=== PATIENT | male | born 1965 | race Caucasian/White ===

== ENCOUNTER 2019-03-23 11:26 | Observation (INO) | payer OTHER ==
[2019-03-23] MEDS ORDERED: NITROGLYCERIN OINT 1 INCH/GM PACKET TOPICAL STA (11:40)
[2019-03-23] MEDS ORDERED: ASPIRIN 81 MG PO STA (11:40)
--- NOTE | 2019-03-23 11:45 | ED ---
General Adult HPI - General Chief complaint: Chest Pain Stated complaint: chest pain Time Seen by Provider: 03/23/19 11:30 Source: patient, EMS, RN notes reviewed Mode of arrival: EMS Limitations: no limitations - History of Present Illness Initial comments: This is a 53-year-old male who presents emergency Department complaining of chest pain. Patient states he has a history of one stent and has diabetes. Patient states he had a stent about 5 years ago. Patient states started having chest pain yesterday at work and also made him very short of breath. Patient denies any radiation of the pain. Patient states it lasts about 2 hours and went away when he finally down to go to bed per patient states she woke up this mind chest pain-free shortly thereafter started having chest pain again short of breath and so he called EMS. Patient states they gave him a couple it took us as it took the pain away but then it came back and they gave him some fentanyl which improved the pain. Patient states currently is chest pain-free. Patient denies any recent fever chills or cough per patient denies any lightheadedness dizziness or near syncopal episode. Patient denies any palpitations. Patient denies abdominal pain patient denies nausea vomiting diarrhea. - Related Data Home Medications Medication Instructions Recorded Confirmed Aspirin 81 mg PO DAILY 11/30/14 03/23/19 INSULIN ASPART (NovoLOG) [NovoLOG See Protocol SQ DAILY PRN 03/23/19 03/23/19 (formulary)] Insulin Degludec [Tresiba 45 - 55 units SQ HS 03/23/19 03/23/19 Flextouch U-200] Previous Rx's Medication Instructions Recorded Atorvastatin [Lipitor] 80 mg PO HS #30 tab 08/05/14 Allergies Allergy/AdvReac Type Severity Reaction Status Date / Time No Known Allergies Allergy Verified 03/23/19 11:40 Review of Systems ROS Statement: Those systems with pertinent positive or pertinent negative responses have been documented in the HPI. ROS Other: All systems not noted in ROS Statement are negative. Past Medical History Past Medical History: Coronary Artery Disease (CAD), Chest Pain / Angina, Heart Failure, Diabetes Mellitus, Hyperlipidemia, Hypertension History of Any Multi-Drug Resistant Organisms: None Reported Past Surgical History: Heart Catheterization With Stent, Orthopedic Surgery Additional Past Surgical History / Comment(s): right leg STEEL PLATE AND 7 SCREWS Past Anesthesia/Blood Transfusion Reactions: No Reported Reaction Date of Last Stent Placement:: 07/2014 Past Psychological History: Depression Smoking Status: Never smoker Past Alcohol Use History: None Reported Past Drug Use History: None Reported - Past Family History Father Additional Family Medical History / Comment(s): AT AGE 83- THYROID CANCER Mother Family Medical History: Coronary Artery Disease (CAD) Additional Family Medical History / Comment(s): 5 VESSEL BYPASS General Exam - General Exam Comments Initial Comments: GENERAL: Patient is well-developed and well-nourished. Patient is nontoxic and well- hydrated and is in no acute distress. ENT: Neck is soft and supple. No significant lymphadenopathy is noted. Oropharynx is clear. Moist mucous membranes. Neck has full range of motion without eliciting any pain. EYES: The sclera were anicteric and conjunctiva were pink and moist. Extraocular movements were intact and pupils were equal round and reactive to light. Eyelids were unremarkable. PULMONARY: Unlabored respirations. Good breath sounds bilaterally. No audible rales rhonchi or wheezing was noted. CARDIOVASCULAR: There is a regular rate and rhythm without any murmurs gallops or rubs. ABDOMEN: Soft and nontender with normal bowel sounds. SKIN: Skin is clear with no lesions or rashes and otherwise unremarkable. NEUROLOGIC: Patient is alert and oriented x3. Cranial nerves II through XII are grossly intact. Motor and sensory are also intact. Normal speech, volume and content. Symmetrical smile. MUSCULOSKELETAL: Normal extremities with adequate strength and full range of motion. LYMPHATICS: No significant lymphadenopathy is noted PSYCHIATRIC: Normal psychiatric evaluation. Limitations: no limitations Course Vital Signs 03/23/19 11:30 Temperature 98.4 F Pulse Rate 89 Respiratory 17 Rate Blood Pressure 110/71 O2 Sat by Pulse 95 Oximetry Medical Decision Making - Medical Decision Making EKG shows normal sinus rhythm at 77 bpm LA interval 160 QRS is 84 QT interval 342 QTC is 37. Patient's EKG shows no ST segment elevation or depression no T- wave abnormalities noted. Chest x-ray shows no acute abnormality. I will back into reevaluate the patient patient was no longer having any chest pain. Because of the patient's history and presentation I consider this to be unstable angina started the patient on heparin. I spoke with Dr. Garrett Tucker agreed to admit the patient admitted the patient I wrote admitting orders and consult cardiology. I continued heparin and aspirin and Nitropaste on the floor. - Lab Data Result diagrams: 03/23/19 11:31 03/23/19 11:31 Lab Results 03/23/19 03/23/19 03/23/19 Range/Units 11:31 11:31 11:31 WBC 8.9 (3.8-10.6) k/uL RBC 5.47 (4.30-5.90) m/uL Hgb 15.6 (13.0-17.5) gm/dL Hct 48.7 (39.0-53.0) % MCV 89.1 (80.0-100.0) fL MCH 28.5 (25.0-35.0) pg MCHC 31.9 (31.0-37.0) g/dL RDW 12.9 (11.5-15.5) % Plt Count 236 (150-450) k/uL Neutrophils % 70 % Lymphocytes % 18 % Monocytes % 5 % Eosinophils % 5 % Basophils % 1 % Neutrophils # 6.2 (1.3-7.7) k/uL Lymphocytes # 1.6 (1.0-4.8) k/uL Monocytes # 0.4 (0-1.0) k/uL Eosinophils # 0.4 (0-0.7) k/uL Basophils # 0.1 (0-0.2) k/uL PT 10.0 (9.0-12.0) sec INR 0.9 (<1.2) APTT 23.2 (22.0-30.0) sec Sodium 138 (137-145) mmol/L Potassium 4.6 (3.5-5.1) mmol/L Chloride 106 (98-107) mmol/L Carbon Dioxide 24 (22-30) mmol/L Anion Gap 8 mmol/L BUN 22 H (9-20) mg/dL Creatinine 0.77 (0.66-1.25) mg/dL Est GFR (CKD-EPI)AfAm >90 (>60 ml/min/1.73 sqM) Est GFR (CKD-EPI)NonAf >90 (>60 ml/min/1.73 sqM) Glucose 306 H (74-99) mg/dL Calcium 9.1 (8.4-10.2) mg/dL Magnesium 2.0 (1.6-2.3) mg/dL Total Bilirubin 0.6 (0.2-1.3) mg/dL AST 25 (17-59) U/L ALT 39 (21-72) U/L Alkaline Phosphatase 99 (38-126) U/L Troponin I (0.000-0.034) ng/mL Total Protein 6.8 (6.3-8.2) g/dL Albumin 4.1 (3.5-5.0) g/dL 03/23/19 Range/Units 11:31 WBC (3.8-10.6) k/uL RBC (4.30-5.90) m/uL Hgb (13.0-17.5) gm/dL Hct (39.0-53.0) % MCV (80.0-100.0) fL MCH (25.0-35.0) pg MCHC (31.0-37.0) g/dL RDW (11.5-15.5) % Plt Count (150-450) k/uL Neutrophils % % Lymphocytes % % Monocytes % % Eosinophils % % Basophils % % Neutrophils # (1.3-7.7) k/uL Lymphocytes # (1.0-4.8) k/uL Monocytes # (0-1.0) k/uL Eosinophils # (0-0.7) k/uL Basophils # (0-0.2) k/uL PT (9.0-12.0) sec INR (<1.2) APTT (22.0-30.0) sec Sodium (137-145) mmol/L Potassium (3.5-5.1) mmol/L Chloride (98-107) mmol/L Carbon Dioxide (22-30) mmol/L Anion Gap mmol/L BUN (9-20) mg/dL Creatinine (0.66-1.25) mg/dL Est GFR (CKD-EPI)AfAm (>60 ml/min/1.73 sqM) Est GFR (CKD-EPI)NonAf (>60 ml/min/1.73 sqM) Glucose (74-99) mg/dL Calcium (8.4-10.2) mg/dL Magnesium (1.6-2.3) mg/dL Total Bilirubin (0.2-1.3) mg/dL AST (17-59) U/L ALT (21-72) U/L Alkaline Phosphatase (38-126) U/L Troponin I <0.012 (0.000-0.034) ng/mL Total Protein (6.3-8.2) g/dL Albumin (3.5-5.0) g/dL Critical Care Time Critical Care Time: Yes Total Critical Care Time: 35 Disposition Clinical Impression: Unstable angina pectoris Disposition: ADMITTED IP TO THIS HOSP Referrals: Elías Lutz DO [Primary Care Provider] - 1-2 days Time of Disposition: 13:03
[2019-03-23 12:00] LABS: Basophils # (A) 0.1 k/uL (0-0.2); Basophils % (A) 1 %; Eosinophils # (A) 0.4 k/uL (0-0.7); Eosinophils % (A) 5 %; HCT 48.7 % (39.0-53.0); HGB 15.6 gm/dL (13.0-17.5); Lymphocytes # (A) 1.6 k/uL (1.0-4.8); Lymphocytes % (A) 18 %; MCH 28.5 pg (25.0-35.0); MCHC 31.9 g/dL (31.0-37.0); MCV 89.1 fL (80.0-100.0); Mean Platelet Volume 7.7; Monocytes # (A) 0.4 k/uL (0-1.0); Monocytes % (A) 5 %; Neutrophils # (A) 6.2 k/uL (1.3-7.7); Neutrophils % (A) 70 %; Platelet Count 236 k/uL (150-450); RBC 5.47 m/uL (4.30-5.90); RDW 12.9 % (11.5-15.5); WBC 8.9 k/uL (3.8-10.6)
[2019-03-23 12:09] LABS: ALT 39 U/L (21-72); AST 25 U/L (17-59); African American GFR (CKD) >90 (>60 ml/min/1.73 sqM); Albumin 4.1 g/dL (3.5-5.0); Alkaline Phosphatase 99 U/L (38-126); Anion Gap 8 mmol/L; Blood Urea Nitrogen 22 mg/dL (9-20); Calcium 9.1 mg/dL (8.4-10.2); Carbon Dioxide 24 mmol/L (22-30); Chloride 106 mmol/L (98-107); Glucose 306 mg/dL (74-99); Potassium 4.6 mmol/L (3.5-5.1); Sodium 138 mmol/L (137-145); Total Bilirubin 0.6 mg/dL (0.2-1.3); Total Protein 6.8 g/dL (6.3-8.2)
[2019-03-23 12:10] LABS: INR 0.9 (<1.2); Partial Thromboplastin Time 23.2 sec (22.0-30.0)
--- NOTE | 2019-03-23 12:23 | XR ---
EXAMINATION TYPE: XR chest 2V DATE OF EXAM: 03/23/2019 COMPARISON: Prior chest x-ray 11/30/2014 HISTORY: Chest pain TECHNIQUE: Frontal and lateral views of the chest are obtained. FINDINGS: There is no focal air space opacity, pleural effusion, or pneumothorax seen. The cardiac silhouette size is within normal limits. The osseous structures are intact. There are overlying car diac leads. There is thoracic spondylosis present. IMPRESSION: No acute cardiopulmonary process.
[2019-03-23] MEDS ORDERED: HEPARIN SOD,PORK IN 0.45% NACL 25,000 UNIT in 0.45% NACL 1 250ML.BAG IV SCH (13:00)
[2019-03-23] MEDS ORDERED: HEPARIN SODIUM,PORCINE 5,000 UNIT/ML 1 ML VIAL IV ONE (13:00)
[2019-03-23 14:17] LABS: Glucose,Whole Blood 291 mg/dL (75-99)
[2019-03-23] MEDS: NITROGLYCERIN SL TABS 0.4 MG TAB SUBLINGUAL PRN ×3 (16:01→16:27)
[2019-03-23] MEDS: INSULIN ASPART (NovoLOG) 100 UNIT/ML VIAL SQ SCH ×3 (16:02→20:16)
[2019-03-23 16:59] LABS: Glucose,Whole Blood 226 mg/dL (75-99)
[2019-03-23] MEDS: NITROGLYCERIN OINT 1 INCH/GM PACKET TOPICAL SCH (17:53)
[2019-03-23 20:20] LABS: Glucose,Whole Blood 120 mg/dL (75-99)
[2019-03-23] MEDS ORDERED: ATORVASTATIN 80 MG TAB PO SCH (21:00)
[2019-03-23] MEDS ORDERED: INSULIN DETEMIR (LEVEMIR) 100 UNIT/ML SYR SQ SCH (21:00)
[2019-03-23] MEDS ORDERED: ACETAMINOPHEN TAB 325 MG TAB PO PRN (23:45)
[2019-03-24] MEDS: NITROGLYCERIN OINT 1 INCH/GM PACKET TOPICAL SCH (00:45)
[2019-03-24 00:51] LABS: Cholesterol 158 mg/dL (<200); HDL Cholesterol 27 mg/dL (40-60); LDL Cholesterol,Calculated 103 mg/dL (0-99); Triglycerides 141 mg/dL (<150)
[2019-03-24 06:50] LABS: Glucose,Whole Blood 148 mg/dL (75-99)
[2019-03-24 08:24] VITALS: RESP 18
[2019-03-24] MEDS: INSULIN ASPART (NovoLOG) 100 UNIT/ML VIAL SQ SCH ×2 (08:55→12:47)
[2019-03-24] MEDS ORDERED: ASPIRIN 325 MG TAB PO SCH (09:00)
[2019-03-24] MEDS ORDERED: ASPIRIN 81 MG PO SCH (09:00)
--- NOTE | 2019-03-24 09:57 | P.CRDCN ---
History of Present Illness History of present illness: This is a pleasant 53-year-old male past medical history significant for coronary artery disease status post stent placement to the OM in 2013, dyslipidemia and diabetes mellitus. He follows with Dr. Lantigua for cardiology, however his stent was placed here. We have been asked to see him in consultation secondary to chest discomfort. Friday night while walking through work he felt a sharp pain that only lasted a brief few seconds. There was no radiation to the arm, back, neck or jaw. The pain was associated with some mild shortness of breath intermittently. Throughout the rest of the night he had multiple more episodes of brief sharp pain causing him to leave work early. He went home and immediately went to sleep. He woke up Friday feeling ok, went to [employer] and again started feeling chest discomfort. However this time it was described as a pressure heaviness in the chest. He was told by his friends at [employer] that he was extremely pale. He denies radiation to the arm, back, neck or jaw. He again was mildly short of breath with no dizziness, palpitations, n ausea, vomiting or diaphoresis. Upon arrival to the emergency department his chest pain had subsided. However he had another bout of chest discomfort last evening of which she was given nitroglycerin and seemed to subside. He is currently chest pain-free. Chest x-ray reveals sinus mechanism with sinus arrhythmia, inferior Q waves noted. Chest x-ray is negative for an acute cardiopulmonary process. Laboratory data reviewed, cardiac enzymes negative 3, LDL of 103 and HDL 27, WBC 8.9, hemoglobin 15.6, pO2 236, sodium 138, potassium 4.6, creatinine 0.77 and magnesium 2.0. Current cardiac medications include aspirin 81 mg daily and atorvastatin 80 mg daily. Cardiac catheterization report reviewed from 2013 revealing LAD free of obstructive disease, mild plaque noted in the circumflex, patent stent of the OM, RCA with plaque throughout its length but no significant focal occlusive disease. At the time of my exam: CONSTITUTIONAL: Denies fever. Denies chills. EYES: Denies blurred vision. Denies vision changes. Denies eye pain. EARS, NOSE, MOUTH & THROAT: Denies headache. Denies sore throat. Denies ear pain. CARDIOVASCULAR: Denies chest pain. Denies shortness of breath. Denies orthopnea. Denies PND. Denies palpitations. RESPIRATORY: Denies cough. GASTROINTESTINAL: Denies abdominal pain. Denies diarrhea. Denies constipation. Denies nausea. Denies vomiting. MUSCULOSKELETAL: Denies myalgias. INTEGUMENTARY: Denies pruitis. Denies rash. NEUROLOGIC: Denies numbness. Denies tingling. Denies weakness. PSYCHIATRIC: Denies anxiety. Denies depression. ENDOCRINE: Denies fatigue. Denies weight change. Denies polydipsia. Denies polyurina. GENITOURINARY: Denies burning, hematuria or urgency with micturation. HEMATOLOGIC: Denies history of anemia. Denies bleeding. Blood pressure 107/66 heart rate 71 afebrile maintaining oxygen saturation on room air GENERAL: This is a 53-year-old male in no apparent distress at the time of my examination. HEENT: Head is atraumatic, normocephalic. Pupils are equal, round. Sclerae anicteric. Conjunctivae are clear. Mucous membranes of the mouth are moist. Neck is supple. There is no jugular venous distention. No carotid bruit is heard. LUNGS: Clear to auscultation no wheezes, rales or rhonchi. No chest wall tenderness is noted on palpation or with deep breathing. HEART: Regular rate and rhythm without murmurs, rubs or gallops. S1 and S2 heard. ABDOMEN: Soft, nontender. Bowel sounds are heard. No organomegaly noted. EXTREMITIES: No evidence of peripheral edema and no calf tenderness noted. VASCULAR: Radial and dorsalis pedis pulses palpated, no evidence of clubbing. NEUROLOGIC: Patient is awake, alert and oriented x3. ASSESSMENT Precordial chest pain. An acute coronary event has been ruled out. History of coronary artery disease s/p stent placement to the in 2013. Dyslipidemia Diabetes mellitus PLAN An acute coronary event has been ruled out. Discontinue heparin infusion. Obtain 2D echocardiogram and doppler study to assess cardiac structure and function. Perform Cardiolyte stress test to assess for reversible cardiac ischemia. Thank you kindly for this consultation. Nurse Practitioner note has been reviewed, I agree with a documented findings and plan of care. Patient was seen and examined. Past Medical History Past Medical History: Coronary Artery Disease (CAD), Chest Pain / Angina, Diabetes Mellitus, Hyperlipidemia Additional Past Medical History / Comment(s): IDDM type II, neuropathy R great toe. History of Any Multi-Drug Resistant Organisms: None Reported Past Surgical History: Heart Catheterization, Heart Catheterization With Stent, Orthopedic Surgery Additional Past Surgical History / Comment(s): right foot steel plate and 7 screws, colonoscopy, vasectomy Past Anesthesia/Blood Transfusion Reactions: No Reported Reaction Date of Last Stent Placement:: 07/2014 Smoking Status: Never smoker - Past Family History Father Additional Family Medical History / Comment(s): AT AGE 63- THYROID CANCER Mother Family Medical History: Coronary Artery Disease (CAD) Additional Family Medical History / Comment(s): 5 VESSEL BYPASS Medications and Allergies Home Medications Medication Instructions Recorded Confirmed Type Atorvastatin [Lipitor] 80 mg PO HS #30 tab 08/05/14 03/23/19 Rx Aspirin 81 mg PO DAILY 11/30/14 03/23/19 History INSULIN ASPART (NovoLOG) [NovoLOG See Protocol SQ DAILY PRN 03/23/19 03/23/19 History (formulary)] Insulin Degludec [Tresiba 45 - 55 units SQ HS 03/23/19 03/23/19 History Flextouch U-200] Allergies Allergy/AdvReac Type Severity Reaction Status Date / Time No Known Allergies Allergy Verified 03/23/19 11:40 Physical Exam Vitals: Vital Signs Temp Pulse Pulse Resp BP BP Pulse Ox 03/24/19 04:56 98.3 F 80 15 95/57 97 03/24/19 03:49 15 03/24/19 00:00 77 15 03/23/19 23:36 98.5 F 86 15 112/69 97 03/23/19 20:00 86 17 03/23/19 19:41 96 03/23/19 16:28 86 16 108/68 98 03/23/19 16:18 81 16 104/63 96 03/23/19 16:00 98.5 F 86 16 107/65 96 03/23/19 13:10 89 16 118/78 98 03/23/19 13:06 83 20 97 03/23/19 11:30 98.4 F 89 17 110/71 95 Intake and Output 03/23/19 03/24/19 03/24/19 22:59 06:59 14:59 Intake Total 117.667 Balance 117.667 Intake: Intake, IV Titration 117.667 Amount Heparin Sod,Pork in 0.45% 117.667 NaCl 25,000 unit In 0.45 % NaCl 1 250ml.bag @ 11. 023 UNITS/KG/HR 10 mls/hr IV .Q24H [facility] Rx#: [id number] Other: Voiding Method Toilet Toilet # Voids 1 1 Results 03/23/19 11:31 03/23/19 11:31 Cardiac Enzymes 03/23/19 03/23/19 03/23/19 Range/Units 11:31 11:31 19:35 AST 25 (17-59) U/L Troponin I <0.012 <0.012 (0.000-0.034) ng/mL 03/23/19 Range/Units 23:35 AST (17-59) U/L Troponin I <0.012 (0.000-0.034) ng/mL Coagulation 03/23/19 03/23/19 03/24/19 Range/Units 11:31 19:35 06:07 PT 10.0 (9.0-12.0) sec APTT 23.2 33.7 H 41.2 H (22.0-30.0) sec Lipids 03/23/19 Range/Units 11:31 Triglycerides 141 (<150) mg/dL Cholesterol 158 (<200) mg/dL HDL Cholesterol 27 L (40-60) mg/dL CBC 03/23/19 Range/Units 11:31 WBC 8.9 (3.8-10.6) k/uL RBC 5.47 (4.30-5.90) m/uL Hgb 15.6 (13.0-17.5) gm/dL Hct 48.7 (39.0-53.0) % Plt Count 236 (150-450) k/uL Comprehensive Metabolic Panel 03/23/19 Range/Units 11:31 Sodium 138 (137-145) mmol/L Potassium 4.6 (3.5-5.1) mmol/L Chloride 106 (98-107) mmol/L Carbon Dioxide 24 (22-30) mmol/L BUN 22 H (9-20) mg/dL Creatinine 0.77 (0.66-1.25) mg/dL Glucose 306 H (74-99) mg/dL Calcium 9.1 (8.4-10.2) mg/dL AST 25 (17-59) U/L ALT 39 (21-72) U/L Alkaline Phosphatase 99 (38-126) U/L Total Protein 6.8 (6.3-8.2) g/dL Albumin 4.1 (3.5-5.0) g/dL Current Medications Generic Name Dose Route Start Last Admin Trade Name Freq PRN Reason Stop Dose Admin Acetaminophen 650 mg 03/23/19 23:45 03/23/19 23:49 Tylenol Tab PO 650 mg Q6HR PRN Administration Fever and/ or Pain Aspirin 81 mg 03/24/19 09:00 Aspirin PO DAILY [facility] Atorvastatin Calcium 80 mg 03/23/19 21:00 03/23/19 20:14 Lipitor PO 80 mg HS [facility] Administration Heparin Sodium/Sodium Chloride 250 mls @ 10 mls/hr 03/23/19 13:00 03/24/19 01:01 25,000 unit/ Sodium Chloride IV 14.023 units/kg/hr .Q24H BETTY 12.721 mls/hr Titration Protocol 11.023 UNITS/KG/HR Insulin Aspart 0 unit 03/23/19 17:30 03/23/19 20:16 Novolog SQ Not Given [facility] Protocol Insulin Detemir 50 unit 03/23/19 21:00 03/23/19 20:17 Levemir SQ 25 unit HS [facility] Administration Nitroglycerin 1 inch 03/23/19 18:00 03/24/19 00:45 Nitro-Bid Oint TOPICAL Not Given Q6HR [facility] Nitroglycerin 0.4 mg 03/23/19 13:04 03/23/19 16:27 Nitrostat SUBLINGUAL 0.4 mg Q5M PRN Administration Chest Pain Intake and Output 03/23/19 03/24/19 03/24/19 22:59 06:59 14:59 Intake Total 117.667 Balance 117.667 Intake: Intake, IV Titration 117.667 Amount Heparin Sod,Pork in 0.45% 117.667 NaCl 25,000 unit In 0.45 % NaCl 1 250ml.bag @ 11. 023 UNITS/KG/HR 10 mls/hr IV .Q24H [facility] Rx#: [id number] Other: Voiding Method Toilet Toilet # Voids 1 1 03/23/19 11:31 03/23/19 11:31
[2019-03-24] MEDS ORDERED: AMINOPHYLLINE 500 MG/20 ML VIAL IV PRN (10:14)
[2019-03-24] MEDS ORDERED: SODIUM CHLORIDE 0.9% IV ONE (10:14)
[2019-03-24] MEDS ORDERED: DIPYRIDAMOLE IV ONE (10:14)
[2019-03-24] MEDS ORDERED: CAFFEINE CITRATE 60 MG/3 ML VIAL IV PRN (10:14)
--- NOTE | 2019-03-24 10:42 | P.HPIM ---
History of Present Illness H&P Date: 03/23/19 Patient is a pleasant 53-year-old male came in the with complaints of chest pain which is brief last for a few seconds in the precordial area nonradiating and not associated sharp with lightheadedness or diaphoresis. Pain is sharp in nature. Not associated with food. Patient still has his gallbladder. Patient does have history of coronary disease with stents to obtuse marginal in 2013 does have diabetes mellitus and hyperlipidemia patient has multiple such episodes. Denied nausea vomiting cough. Chest x-ray did not show any significant abnormality EKG no acute ST-T wave changes troponins is negative. Review of Systems REVIEW OF SYSTEMS: CONSTITUTIONAL: No fever, no malaise, no fatigue. HEENT: No recent visual problems or hearing problems. Denied any sore throat. CARDIOVASCULAR: No orthopnea, PND, no palpitations, no syncope. PULMONARY: No shortness of breath, no cough, no hemoptysis. GASTROINTESTINAL: No diarrhea, no nausea, no vomiting, no abdominal pain. NEUROLOGICAL: No headaches, no weakness, no numbness. HEMATOLOGICAL: Denies any bleeding or petechiae. GENITOURINARY: Denies any burning micturition, frequency, or urgency. MUSCULOSKELETAL/RHEUMATOLOGICAL: Denies any joint pain, swelling, or any muscle pain. ENDOCRINE: Denies any polyuria or polydipsia. The rest of the 14-point review of systems is negative. Past Medical History Past Medical History: Coronary Artery Disease (CAD), Chest Pain / Angina, Diabetes Mellitus, Hyperlipidemia Additional Past Medical History / Comment(s): IDDM type II, neuropathy R great toe. History of Any Multi-Drug Resistant Organisms: None Reported Past Surgical History: Heart Catheterization, Heart Catheterization With Stent, Orthopedic Surgery Additional Past Surgical History / Comment(s): right foot steel plate and 7 screws, colonoscopy, vasectomy Past Anesthesia/Blood Transfusion Reactions: No Reported Reaction Date of Last Stent Placement:: 07/2014 Smoking Status: Never smoker - Past Family History Father Additional Family Medical History / Comment(s): AT AGE 63- THYROID CANCER Mother Family Medical History: Coronary Artery Disease (CAD) Additional Family Medical History / Comment(s): 5 VESSEL [employer] Medications and Allergies Home Medications Medication Instructions Recorded Confirmed Type Atorvastatin [Lipitor] 80 mg PO HS #30 tab 08/05/14 03/23/19 Rx Aspirin 81 mg PO DAILY 11/30/14 03/23/19 History INSULIN ASPART (NovoLOG) [NovoLOG See Protocol SQ DAILY PRN 03/23/19 03/23/19 History (formulary)] Insulin Degludec [Tresiba 45 - 55 units SQ HS 03/23/19 03/23/19 History Flextouch U-200] Allergies Allergy/AdvReac Type Severity Reaction Status Date / Time No Known Allergies Allergy Verified 03/23/19 11:40 Physical Exam Vitals: Vital Signs Temp Pulse Pulse Resp BP BP Pulse Ox 03/24/19 07:45 97.8 F 71 18 107/66 96 03/24/19 04:56 98.3 F 80 15 95/57 97 03/24/19 03:49 15 03/24/19 00:00 77 15 03/23/19 23:36 98.5 F 86 15 112/69 97 03/23/19 20:00 86 17 03/23/19 19:41 96 03/23/19 16:28 86 16 108/68 98 03/23/19 16:18 81 16 104/63 96 03/23/19 16:00 98.5 F 86 16 107/65 96 03/23/19 13:10 89 16 118/78 98 03/23/19 13:06 83 20 97 03/23/19 11:30 98.4 F 89 17 110/71 95 Intake and Output 03/23/19 03/24/19 03/24/19 22:59 06:59 14:59 Intake Total 117.667 Balance 117.667 Intake: Intake, IV Titration 117.667 Amount Heparin Sod,Pork in 0.45% 117.667 NaCl 25,000 unit In 0.45 % NaCl 1 250ml.bag @ 11. 023 UNITS/KG/HR 10 mls/hr IV .Q24H [facility] Rx#: [id number] Other: Voiding Method Toilet Toilet # Voids 1 1 PHYSICAL EXAMINATION: GENERAL: The patient is alert and oriented x3, not in any acute distress. Well developed, well nourished. HEENT: Pupils are round and equally reacting to light. EOMI. No scleral icterus. No conjunctival pallor. Normocephalic, atraumatic. No pharyngeal erythema. No thyromegaly. CARDIOVASCULAR: S1 and S2 present. No murmurs, rubs, or gallops. PULMONARY: Chest is clear to auscultation, no wheezing or crackles. ABDOMEN: Soft, nontender, nondistended, normoactive bowel sounds. No palpable organomegaly. MUSCULOSKELETAL: No joint swelling or deformity. EXTREMITIES: No cyanosis, clubbing, or pedal edema. NEUROLOGICAL: Gross neurological examination did not reveal any focal deficits. SKIN: No rashes. Results CBC & Chem 7: 03/23/19 11:31 03/23/19 11:31 Labs: Abnormal Lab Results - Last 24 Hours (Table) 03/23/19 03/23/19 03/23/19 Range/Units 11:31 11:31 14:03 APTT (22.0-30.0) sec BUN 22 H (9-20) mg/dL Glucose 306 H (74-99) mg/dL POC Glucose (mg/dL) 291 H (75-99) mg/dL LDL Cholesterol, Calc 103 H (0-99) mg/dL HDL Cholesterol 27 L (40-60) mg/dL 03/23/19 03/23/19 03/23/19 Range/Units 16:57 19:35 20:15 APTT 33.7 H (22.0-30.0) sec BUN (9-20) mg/dL Glucose (74-99) mg/dL POC Glucose (mg/dL) 226 H 120 H (75-99) mg/dL LDL Cholesterol, Calc (0-99) mg/dL HDL Cholesterol (40-60) mg/dL 03/24/19 03/24/19 Range/Units 06:07 06:47 APTT 41.2 H (22.0-30.0) sec BUN (9-20) mg/dL Glucose (74-99) mg/dL POC Glucose (mg/dL) 148 H (75-99) mg/dL LDL Cholesterol, Calc (0-99) mg/dL HDL Cholesterol (40-60) mg/dL Thrombosis Risk Factor Assmnt - Choose All That Apply Any of the Below Risk Factors Present?: Yes Each Factor Represents 1 point: Age 41-60 years, Obesity (BMI >25) Other Risk Factors: No Other congenital or acquired thrombophilia - If yes, enter type in comment: No Thrombosis Risk Factor Assessment Total Risk Factor Score: 2 Thrombosis Risk Factor Assessment Level: Low Risk Assessment and Plan Plan: -Chest pain: Atypical appears to be noncardiac cardiology will evaluate the patient will obtain 2 more sets of troponins and EKGs and patient may end up needing a stresses, considering his history. Etiology of chest pain is not clear at this time we will rule out acute coronary syndromes next and-type 2 diabetes mellitus blood sugars are not well-controlled and elevated here patient will be started on insulin regimen as his home and sliding scale -Hypertension -Hyperlipidemia -Coronary artery disease
[2019-03-24] MEDS ORDERED: AMINOPHYLLINE 250 MG/10 ML VIAL IV ONE (11:34)
--- NOTE | 2019-03-24 12:37 | P.DS ---
Providers Date of admission: 03/23/19 13:04 Attending physician: Charleen Tucker Consults: 03/23/19 13:04 Consult Physician Urgent Consulting Provider: [facility] Consult Reason/Comments: Unstable angina Do you want consulting provider notified?: Yes [facility] Course: 53-year-old pleasant gentleman was admitted for chest pain rule out a concurrent syndromes patient is alert and post stress test if that's negative patient will be discharged today. Patient is still having on and of brief episodes of chest pain etiology is not clear may be musculoskeletal. PHYSICAL EXAMINATION: GENERAL: The patient is alert and oriented x3, not in any acute distress. Well developed, well nourished. HEENT: Pupils are round and equally reacting to light. EOMI. No scleral icterus. No conjunctival pallor. Normocephalic, atraumatic. No pharyngeal erythema. No thyromegaly. CARDIOVASCULAR: S1 and S2 present. No murmurs, rubs, or gallops. PULMONARY: Chest is clear to auscultation, no wheezing or crackles. ABDOMEN: Soft, nontender, nondistended, normoactive bowel sounds. No palpable organomegaly. MUSCULOSKELETAL: No joint swelling or deformity. EXTREMITIES: No cyanosis, clubbing, or pedal edema. NEUROLOGICAL: Gross neurological examination did not reveal any focal deficits. SKIN: No rashes. Please refer to my HPI for further details of hospitalization course and other medical problems that were addressed during this hospitalization Plan - Discharge Summary Discharge Rx Participant: No New Discharge Prescriptions: No Action Atorvastatin [Lipitor] 80 mg PO HS #30 tab Aspirin 81 mg PO DAILY INSULIN ASPART (NovoLOG) [NovoLOG (formulary)] See Protocol SQ DAILY PRN PRN Reason: Blood Sugar - High Insulin Degludec [Tresiba Flextouch U-200] 45 - 55 units SQ HS Discharge Medication List Atorvastatin [Lipitor] 80 mg PO HS #30 tab 08/05/14 [Rx] Aspirin 81 mg PO DAILY 11/30/14 [History] INSULIN ASPART (NovoLOG) [NovoLOG (formulary)] See Protocol SQ DAILY PRN 03/23/19 [History] Insulin Degludec [Tresiba Flextouch U-200] 45 - 55 units SQ HS 03/23/19 [History] Follow up Appointment(s)/Referral(s): Elías Lutz DO [Primary Care Provider] - 3 Days Discharge Disposition: HOME SELF-CARE
[2019-03-24 12:40] VITALS: BP 137/76; PULSE 77; TEMP 98.2
[2019-03-24 12:42] LABS: Glucose,Whole Blood 166 mg/dL (75-99)
--- NOTE | 2019-03-24 14:11 | NM ---
EXAMINATION TYPE: NM stress persantine cardiolit DATE OF EXAM: 03/24/2019 COMPARISON: NONE HISTORY: Chest pain TECHNIQUE: After the intravenous administration of 10.4 mCi Tc 99m Sestamibi - Cardiolite resting SP ECT images acquired 45 minutes post injection. The patient received 52 mg Persantine, 27.1 mCi Tc 99m Sestamibi - Stress images obtained 30 minutes post injection FINDINGS: Review of stress and rest SPECT images demonstrates no distinct perfusion abnormality. Gated analysi s shows normal wall motion with an estimated left ventricular ejection fraction of 63 %. IMPRESSION: No scintigraphic evidence for reversible ischemia.
--- NOTE | 2019-03-25 19:22 | ECHOF ---
Referral Reason:cp MEASUREMENTS -------- HEIGHT: 175.3 cm WEIGHT: 90.7 kg BP: 107/66 RVIDd: 2.9 cm (< 3.3) IVSd: 1.2 cm (0.6 - 1.1) LVIDd: 3.2 cm (3.9 - 5.3) LVPWd: 1.2 cm (0.6 - 1.1) IVSs: 1.5 cm LVIDs: 2.2 cm LVPWs: 1.6 cm LA Diam: 2.9 cm (2.7 - 3.8) LAESV Index (A-L): 20.13 ml/m Ao Diam: 2.9 cm (2.0 - 3.7) AV Cusp: 1.9 cm (1.5 - 2.6) MV EXCURSION: 14.946 mm (> 18.000) MV EF SLOPE: 72 mm/s (70 - 150) EPSS: 0.8 cm MV E Caleb: 0.97 m/s MV DecT: 201 ms MV A Caleb: 1.09 m/s MV E/A Ratio: 0.89 FINDINGS -------- Sinus rhythm. This was a technically adequate study. The left ventricular size is normal. There is borderline concentric left ventricular hypertrophy. Overall left ventricular systolic function is normal with, an EF between 60 - 65 %. The right ventricle is normal in size. Normal LA size by volume 22+/-6 ml/m2. The right atrium is normal in size. Interatrial and interventricular septum intact. The aortic valve is trileaflet and appears structurally normal. The mitral valve is normal. The tricuspid valve appears structurally normal. There is no pulmonic regurgitation present. The aortic root size is normal. Normal inferior vena cava with normal inspiratory collapse consistent with estimated right atrial pre ssure of 5 mmHg. There is no pericardial effusion. CONCLUSIONS -------- 1. Sinus rhythm. 2. This was a technically adequate study. 3. The left ventricular size is normal. 4. There is borderline concentric left ventricular hypertrophy. 5. Overall left ventricular systolic function is normal with, an EF between 60 - 65 %. 6. The right ventricle is normal in size. 7. Normal LA size by volume 22+/-6 ml/m2. 8. The right atrium is normal in size. 9. Interatrial and interventricular septum intact. 10. The aortic valve is trileaflet and appears structurally normal. 11. The mitral valve is normal. 12. The tricuspid valve appears structurally normal. 13. There is no pulmonic regurgitation present. 14. The aortic root size is normal. 15. Normal inferior vena cava with normal inspiratory collapse consistent with estimated right atrial pressure of 5 mmHg. 16. There is no pericardial effusion. LIBERAL ARTS DEAN: Edith Holguin RDCS
--- NOTE | 2019-03-25 22:20 | EST ---
EXERCISE STRESS DATE OF SERVICE: 03/24/2019 AGE: 53 SEX: Male HT: 69" WT: 220 lbs. PROTOCOL: Persantine Cardiolite STAGE: DURATION OF EXERCISE: HEART RATE REST: 76 BLOOD PRESSURE REST: 118/73 MAXIMUM HEART RATE ACHIEVED: 104 MAXIMUM BLOOD PRESSURE: 136/77 85% MPHR: 100% MPHR: METS: INDICATIONS: Chest pain. RESULTS: Stress data: Heart rate 76, pressure is 118/73 mmHg. Baseline EKG showed sinus mechanism. 52 mg of Persantine given per protocol. Max heart rate was 104 beats per minute and maximum pressure was 136/77 mmHg. Clinically the patient did not have any symptoms and the EKG did not show any significant ST or T-wave abnormalities concerning for ischemia. CONCLUSION: 1. Nondiagnostic electrocardiogram stress testing in response to Persantine. 2. Please follow up on the Cardiolite portion on a separate report. MMODL / IJN: [id number] /
== END 2019-03-24 16:18 | disposition home or self-care (01) ==
LOC: EC 11:26 → 1SOBS 13:04
PROVIDERS: ADMIT Internal Medicine; ATTEND Internal Medicine
DX: R07.89 Other chest pain (principal); I11.0 Hypertensive heart disease with heart failure; I50.9 Heart failure, unspecified; E11.65 Type 2 diabetes mellitus with hyperglycemia; E78.5 Hyperlipidemia, unspecified; I25.10 Atherosclerotic heart disease of native coronary artery without angina pectoris; F32.9 Major depressive disorder, single episode, unspecified; E66.9 Obesity, unspecified; Z68.29 Body mass index [BMI] 29.0-29.9, adult; Z79.82 Long term (current) use of aspirin; Z79.4 Long term (current) use of insulin; Z79.899 Other long term (current) drug therapy; Z95.5 Presence of coronary angioplasty implant and graft; Z98.52 Vasectomy status; Z80.8 Family history of malignant neoplasm of other organs or systems; Z82.49 Family history of ischemic heart disease and other diseases of the circulatory system
CPT/HCPCS: 96366 ×2; 96376; 96365; 99291; 36415; 93005; 93017; 93306; 80061; 80053; 83735; 84484; 85025; 85610; 85730 ×2; 71046; 78452; G0378 ×2; A9500; J1644 ×2; J0280

== ENCOUNTER 2024-04-25 03:27 | Observation (INO) | payer OTHER ==
[2024-04-25] MEDS: ASPIRIN 325 MG TAB PO STA (04:06)
--- NOTE | 2024-04-25 04:08 | ED ---
General Adult HPI - General Chief complaint: Chest Pain Stated complaint: Chest Pain Time Seen by Provider: 04/25/24 03:32 Source: patient, RN notes reviewed, old records reviewed Mode of arrival: ambulatory Limitations: no limitations - History of Present Illness Initial comments: 58-year-old male presenting for evaluation of substernal chest pain which began several hours prior to arrival. Pain began at rest. Patient has history of CAD status post stenting. He took nitroglycerin at home with relief of chest pain. Patient is a non-smoker. No associated abdominal pain. No vomiting. No fever. - Related Data Home Medications Medication Instructions Recorded Confirmed Aspirin 81 mg PO DAILY 11/30/14 03/23/19 INSULIN ASPART (NovoLOG) [NovoLOG See Protocol SQ DAILY PRN 03/23/19 03/23/19 (formulary)] Insulin Degludec [Tresiba 45 - 55 units SQ HS 03/23/19 03/23/19 Flextouch U-200] Previous Rx's Medication Instructions Recorded Atorvastatin [Lipitor] 80 mg PO HS #30 tab 08/05/14 Allergies Allergy/AdvReac Type Severity Reaction Status Date / Time Penicillins Allergy Unknown Verified 04/25/24 03:30 Childhood metformin AdvReac Diarrhea Verified 04/25/24 03:30 Review of Systems ROS Statement: Those systems with pertinent positive or pertinent negative responses have been documented in the HPI. ROS Other: All systems not noted in ROS Statement are negative. Past Medical History Past Medical History: Coronary Artery Disease (CAD), Chest Pain / Angina, Diabetes Mellitus, Hyperlipidemia Additional Past Medical History / Comment(s): IDDM type II, neuropathy R great toe. History of Any Multi-Drug Resistant Organisms: None Reported Past Surgical History: Heart Catheterization, Heart Catheterization With Stent, Orthopedic Surgery Additional Past Surgical History / Comment(s): right foot steel plate and 7 screws, colonoscopy, vasectomy Past Anesthesia/Blood Transfusion Reactions: No Reported Reaction Date of Last Stent Placement:: 07/2014 Past Psychological History: Anxiety, Depression Smoking Status: Never smoker Past Alcohol Use History: None Reported Past Drug Use History: None Reported - Past Family History Father Additional Family Medical History / Comment(s): AT AGE 63- THYROID CANCER Mother Family Medical History: Coronary Artery Disease (CAD) Additional Family Medical History / Comment(s): 5 VESSEL BYPASS General Exam Limitations: no limitations General appearance: alert, in no apparent distress Head exam: Present: atraumatic, normocephalic Eye exam: Present: normal appearance ENT exam: Present: normal exam Neck exam: Present: normal inspection. Absent: tenderness, meningismus Respiratory exam: Present: normal lung sounds bilaterally. Absent: respiratory distress, wheezes Cardiovascular Exam: Present: regular rate, normal rhythm GI/Abdominal exam: Present: soft. Absent: distended, tenderness, guarding Extremities exam: Present: normal inspection, normal capillary refill Neurological exam: Present: alert, oriented X3, CN II-XII intact. Absent: motor sensory deficit Psychiatric exam: Present: normal affect, normal mood Skin exam: Present: warm, dry, intact Course Vital Signs 04/25/24 04/25/24 03:28 04:02 Temperature 97.8 F Pulse Rate 99 82 Respiratory 20 20 Rate Blood Pressure 131/71 119/75 O2 Sat by Pulse 97 97 Oximetry Medical Decision Making - Medical Decision Making Was pt. sent in by a medical professional or institution (, PA, RN INFUSION, urgent care, hospital, or [place] health care facility...) When possible be specific @ -No Did you speak to anyone other than the patient for history (EMS, parent, family, police, friend...)? What history was obtained from this source @ -No Did you review nursing and triage notes (agree or disagree)? Why? @ -I reviewed and agree with nursing and triage notes Were old charts reviewed (outside hosp., previous admission, EMS record, old EKG, old radiological studies, urgent care reports/EKG's, [place] health care facility records)? Report findings @ -No old charts were reviewed Differential Chest Pain: Stable Angina, Unstable Angina, STEMI, NSTEMI Aortic Dissection, Pneumothorax, Musculoskeletal, Esophageal Spasm GERD, Cholecystitis, Pancreatitis, Zoster, this is not meant to be an all-inclusive list. EKG interpreted by me (3pts min.). @Sinus rhythm rate of 78, MN interval 167, QRS duration 97, QTc [address] segment elevation. X-rays interpreted by me (1pt min.). @'s x-ray negative for acute cardiopulmonary findings CT interpreted by me (1pt min.). @ -None done U/S interpreted by me (1pt. min.). @ -None done What testing was considered but not performed or refused? (CT, X-rays, U/S, labs)? Why? @ -None What meds were considered but not given or refused? Why? @ -None Did you discuss the management of the patient with other professionals (professionals i.e. , PA, RN INFUSION, lab, RT, psych nurse, social media marketing manager, customer insight analyst, teacher, chief school finance officer, caser in)? Give summary @[facility] Was smoking cessation discussed for >3mins.? @ -No Was critical care preformed (if so, how long)? @Yes, 35 minutes Were there social determinants of health that impacted care today? How? (Homelessness, low income, unemployed, alcoholism, drug addiction, transportation, low edu. Level, literacy, decrease access to med. care, intermediate, rehab)? @ -No Was there de-escalation of care discussed even if they declined (Discuss DNR or withdrawal of care, Hospice)? DNR status @ -No What co-morbidities impacted this encounter? (DM, HTN, Smoking, COPD, CAD, Cancer, CVA, ARF, Chemo, Hep., AIDS, mental health diagnosis, sleep apnea, morbid obesity)? @ -CAD Was patient admitted / discharged? Hospital course, mention meds given and route, prescriptions, significant lab abnormalities, going to OR and other pertinent info. @ -8-year-old male presenting with central chest pain relieved by nitroglycerin, history of CAD. EKG is sinus without ST segment elevation. Chest x-ray clear. He has normal CBC, CMP shows hyperglycemia. Initial troponin is negative. Patient started on nitroglycerin and heparin for unstable angina, will be admitted to internal medicine with cardiology on consultation. Undiagnosed new problem with uncertain prognosis? @ -No Drug Therapy requiring intensive monitoring for toxicity (Heparin, Nitro, Insulin, Cardizem)? @ -No Were any procedures done? @ -No Diagnosis/symptom? @ -Unstable angina Acute, or Chronic, or Acute on Chronic? @ -[Acute Uncomplicated (without systemic symptoms) or Complicated (systemic symptoms)? @ -Default Side effects of treatment? @ -No Exacerbation, Progression, or Severe Exacerbation? @ -No Poses a threat to life or bodily function? How? (Chest pain, USA, RI, pneumonia, PE, COPD, DKA, ARF, appy, cholecystitis, CVA, Diverticulitis, Homicidal, Suicidal, threat to staff... and all critical care pts) @ -[Yes, ACS - Lab Data Result diagrams: 04/25/24 03:56 04/25/24 03:56 Lab Results 04/25/24 04/25/24 04/25/24 Range/Units 03:56 03:56 03:56 WBC 10.4 (3.8-10.6) k/uL RBC 5.51 (4.30-5.90) m/uL Hgb 16.1 (13.0-17.5) gm/dL Hct 52.0 (39.0-53.0) % MCV 94.5 (80.0-100.0) fL MCH 29.3 (25.0-35.0) pg MCHC 30.9 L (31.0-37.0) g/dL RDW 12.8 (11.5-15.5) % Plt Count 215 (150-450) k/uL MPV 9.4 Neutrophils % 62 % Lymphocytes % 25 % Monocytes % 6 % Eosinophils % 5 % Basophils % 1 % Neutrophils # 6.4 (1.3-7.7) k/uL Lymphocytes # 2.6 (1.0-4.8) k/uL Monocytes # 0.6 (0-1.0) k/uL Eosinophils # 0.5 (0-0.7) k/uL Basophils # 0.1 (0-0.2) k/uL Sodium 136 L (137-145) mmol/L Potassium 4.9 (3.5-5.1) mmol/L Chloride 104 (98-107) mmol/L Carbon Dioxide 25 (22-30) mmol/L Anion Gap 7 mmol/L BUN 23 H (9-20) mg/dL Creatinine 0.84 (0.66-1.25) mg/dL Est GFR (CKD-EPI)AfAm >90 (>60 ml/min/1.73 sqM) Est GFR (CKD-EPI)NonAf >90 (>60 ml/min/1.73 sqM) Glucose 405 H (74-99) mg/dL Calcium 9.5 (8.4-10.2) mg/dL Magnesium 2.0 (1.6-2.3) mg/dL Total Bilirubin 0.5 (0.2-1.3) mg/dL AST 28 (17-59) U/L ALT 36 (4-49) U/L Alkaline Phosphatase 115 (38-126) U/L Troponin I 0.013 (0.000-0.034) ng/mL Total Protein 7.1 (6.3-8.2) g/dL Albumin 4.3 (3.5-5.0) g/dL Critical Care Time Critical Care Time: Yes Total Critical Care Time: 35 Disposition Clinical Impression: Unstable angina pectoris Disposition: ADMITTED IP TO THIS [facility] Condition: Stable Is patient prescribed a controlled substance at d/c from ED?: No Referrals: Mt Negron DO [REFERRING] - 1-2 days Time of Disposition: 05:23
[2024-04-25 04:11] LABS: Basophils # (A) 0.1 k/uL (0-0.2); Basophils % (A) 1 %; Eosinophils # (A) 0.5 k/uL (0-0.7); Eosinophils % (A) 5 %; HGB 16.1 gm/dL (13.0-17.5); Lymphocytes # (A) 2.6 k/uL (1.0-4.8); Lymphocytes % (A) 25 %; MCH 29.3 pg (25.0-35.0); MCHC 30.9 g/dL (31.0-37.0); MCV 94.5 fL (80.0-100.0); Mean Platelet Volume 9.4; Monocytes # (A) 0.6 k/uL (0-1.0); Monocytes % (A) 6 %; Neutrophils # (A) 6.4 k/uL (1.3-7.7); Neutrophils % (A) 62 %; Platelet Count 215 k/uL (150-450); RBC 5.51 m/uL (4.30-5.90); RDW 12.8 % (11.5-15.5); WBC 10.4 k/uL (3.8-10.6)
[2024-04-25 04:29] LABS: INR 0.9 (<1.2); Prothrombin Time 10.2 sec (10.0-12.5)
[2024-04-25 04:31] LABS: ALT 36 U/L (4-49); AST 28 U/L (17-59); African American GFR (CKD) >90 (>60 ml/min/1.73 sqM); Albumin 4.3 g/dL (3.5-5.0); Alkaline Phosphatase 115 U/L (38-126); Anion Gap 7 mmol/L; Blood Urea Nitrogen 23 mg/dL (9-20); Calcium 9.5 mg/dL (8.4-10.2); Carbon Dioxide 25 mmol/L (22-30); Chloride 104 mmol/L (98-107); Glucose 405 mg/dL (74-99); Non-African American GFR(CKD) >90 (>60 ml/min/1.73 sqM); Sodium 136 mmol/L (137-145); Total Bilirubin 0.5 mg/dL (0.2-1.3); Total Protein 7.1 g/dL (6.3-8.2)
--- NOTE | 2024-04-25 04:32 | XR ---
EXAM: XR Chest, 2 Views CLINICAL HISTORY: ITS.REASON XR Reason: Chest Pain TECHNIQUE: Frontal and lateral views of the chest. COMPARISON: No relevant prior studies available. FINDINGS: Lungs: Unremarkable. No consolidation. Pleural space: Unremarkable. No pneumothorax. Heart: Unremarkable. No cardiomegaly. Mediastinum: Unremarkable. Normal mediastinal contour. Bones/joints: Unremarkable. No acute fracture. IMPRESSION: No consolidation.
[2024-04-25 04:33] LABS: Potassium 4.9 mmol/L (3.5-5.1)
[2024-04-25] MEDS ORDERED: HEPARIN SODIUM 1,000 UN/ML (10ML VL) IV PRN (05:19)
[2024-04-25] MEDS ORDERED: NALOXONE 0.4 MG/ML 1 ML VIAL IV PRN (05:20)
[2024-04-25 05:23] LABS: Partial Thromboplastin Time 18.7 sec (22.0-30.0)
[2024-04-25] MEDS: NITROGLYCERIN-D5W PMX 50 MG in DEXTROSE/WATER 1 250ML.BAG IV ONE (05:29)
[2024-04-25] MEDS: HEPARIN SODIUM 1,000 UN/ML (10ML VL) IV ONE (05:35)
[2024-04-25] MEDS: HEPARIN SOD,PORK IN 0.45% NACL 25,000 UNIT in 0.45% NACL 1 250ML.BAG IV SCH (05:37)
[2024-04-25 06:23] LABS: Glucose,Whole Blood 362 mg/dL (70-110)
[2024-04-25] MEDS ORDERED: DEXTROSE 50% SYRINGE 50 ML IVP PRN ×2 (06:23)
--- NOTE | 2024-04-25 06:29 | P.HPIM ---
History of Present Illness H&P Date: 04/25/24 Chief Complaint: Chest pain 58-year-old male with coronary artery disease status post stent 10 years ago diabetes mellitus Patient coming in due to worsening chest pain over the past couple days he reports having multiple episodes of sudden retrosternal crushing chest pain 8 out of 10 in severity with radiation to the left arm usually short-lived goes away within few minutes not precipitated by any activity happens all of a sudden. Today's episode happened while resting doing nothing. He is usually trying to be active he does some yard work with no limitations related chest pain or shortness of breath. He denies any associated nausea or vomiting dizziness lightheadedness shortness of breath or profuse sweating. Patient does report very strong family history of premature CAD with his brothers having open heart surgeries at young age his first heart attack was when he was 49. Patient denies tobacco smoking illicit drugs or heavy alcohol He denies any recent travel hospital stay or any history of blood clots Patient denies fevers chills coughing He notes abdominal pain nausea vomiting or GI bleeding review of systems Pertinent positives as noted in HPI. All other systems were reviewed and are negative on exam Constitutional: No acute distress, conversant, pleasant Eyes: Anicteric sclerae, moist conjunctiva, Pupils equal round reactive to light ENMT: NC/AT Oropharynx clear, no erythema, or exudates Neck: Supple, no masses, or JVD No carotid bruits No thyromegaly Lungs: Clear to auscultation Clear to percussion Normal respiratory effort, no accessory muscle use Cardiovascular: Heart regular in rate and rhythm, No murmurs, gallops, or rubs No peripheral edema Abdominal: Soft Nontender, no guarding, rebound or rigidity Abdomen moving with respiration Normoactive bowel sounds No hepatomegaly, No splenomegaly No palpable mass No abdominal wall hernia noted Skin: Normal temperature, tone, texture, turgor No induration No subcutaneous nodules No rash, lesions No ulcers Extremities: No digital cyanosis No clubbing Pedal pulses intact and symmetrical Radial pulses intact and symmetrical No calf tenderness Psychiatric: Alert and oriented to person, place and time Appropriate affect fair judgement Neuro Muscles Strength 5/5 in all 4 extremities Sensation to light touch grossly present throughout Cranial nerves II-XII grossly intact Past Medical History Past Medical History: Coronary Artery Disease (CAD), Chest Pain / Angina, Diabetes Mellitus, Hyperlipidemia Additional Past Medical History / Comment(s): IDDM type II, neuropathy R great toe. History of Any Multi-Drug Resistant Organisms: None Reported Past Surgical History: Heart Catheterization, Heart Catheterization With Stent, Orthopedic Surgery Additional Past Surgical History / Comment(s): right foot steel plate and 7 screws, colonoscopy, vasectomy Past Anesthesia/Blood Transfusion Reactions: No Reported Reaction Date of Last Stent Placement:: 07/2014 Past Psychological History: Anxiety, Depression Smoking Status: Never smoker Past Alcohol Use History: None Reported Past Drug Use History: None Reported - Past Family History Father Additional Family Medical History / Comment(s): AT AGE 63- THYROID CANCER Mother Family Medical History: Coronary Artery Disease (CAD) Additional Family Medical History / Comment(s): 5 VESSEL BYPASS Medications and Allergies Home Medications Medication Instructions Recorded Confirmed Type Atorvastatin [Lipitor] 80 mg PO HS #30 tab 08/05/14 03/23/19 Rx Aspirin 81 mg PO DAILY 11/30/14 03/23/19 History INSULIN ASPART (NovoLOG) [NovoLOG See Protocol SQ DAILY PRN 03/23/19 03/23/19 History (formulary)] Insulin Degludec [Tresiba 45 - 55 units SQ HS 03/23/19 03/23/19 History Flextouch U-200] Allergies Allergy/AdvReac Type Severity Reaction Status Date / Time Penicillins Allergy Unknown Verified 04/25/24 03:30 Childhood metformin AdvReac Diarrhea Verified 04/25/24 03:30 Physical Exam Vitals: Vital Signs Temp Pulse Resp BP Pulse Ox 04/25/24 05:48 75 20 128/73 96 04/25/24 05:42 74 19 129/75 96 04/25/24 05:35 77 19 123/71 96 04/25/24 04:02 82 20 119/75 97 04/25/24 03:28 97.8 F 99 20 131/71 97 Intake and Output 04/24/24 04/24/24 04/25/24 14:59 22:59 06:59 Other: Weight 95.254 kg Results CBC & Chem 7: 04/25/24 03:56 04/25/24 03:56 Labs: Abnormal Lab Results - Last 24 Hours (Table) 04/25/24 04/25/24 04/25/24 Range/Units 03:56 03:56 03:56 MCHC 30.9 L (31.0-37.0) g/dL APTT 18.7 L (22.0-30.0) sec Sodium 136 L (137-145) mmol/L BUN 23 H (9-20) mg/dL Glucose 405 H (74-99) mg/dL POC Glucose (mg/dL) (70-110) mg/dL 04/25/24 Range/Units 06:20 MCHC (31.0-37.0) g/dL APTT (22.0-30.0) sec Sodium (137-145) mmol/L BUN (9-20) mg/dL Glucose (74-99) mg/dL POC Glucose (mg/dL) 362 H (70-110) mg/dL Assessment and Plan Assessment: 58-year-old male with coronary artery disease status post stents 10 years ago with strong family history of premature CAD coming in with sudden onset worsening of his chest pain I discussed the case with ED doctor and accepted the admission for atypical chest pain to rule out acute coronary syndrome Atypical chest pain rule out acute coronary syndrome Strong family history of premature CAD Personal history of coronary artery disease status post stent Continue aspirin and atorvastatin Continue heparin drip for ACS protocol started in the ED Continue with nitro drip due to persistent chest pain Cardiology consult Continue with cardiac monitoring Continue with monitoring vital signs closely Trend troponins EKG showed normal sinus rhythm no acute ST changes Initial troponin negative Diabetes mellitus Insulin sliding scale Blood work overall unremarkable White count 10.4 hemoglobin 16.1 Sodium 136 potassium 4.9 BUN 33 creatinine 0.8 Liver enzymes unremarkable Chest x-ray no acute cardiopulmonary process Full code DVT prophylaxis on heparin drip for ACS protocol GI prophylaxis Protonix p.o. daily
[2024-04-25] MEDS: PANTOPRAZOLE 40 MG TABLET PO SCH (06:36)
[2024-04-25] MEDS: INSULIN ASPART (NovoLOG) 100 UNIT/ML VIAL SQ SCH ×2 (06:36→12:38)
[2024-04-25] MEDS: MORPHINE SULFATE 4 MG/ML SYRINGE IV PRN (06:37)
[2024-04-25] MEDS: ASPIRIN 81 MG PO SCH (08:03)
[2024-04-25 11:36] LABS: Glucose,Whole Blood 153 mg/dL (70-110)
[2024-04-25] MEDS: NITROGLYCERIN SL TABS 0.4 MG TAB SUBLINGUAL PRN (12:22)
[2024-04-25] MEDS: LOSARTAN 25 MG TAB PO SCH (12:32)
[2024-04-25] MEDS: INSULIN DETEMIR (LEVEMIR) 100 UNIT/ML SYR SQ SCH (12:53)
--- NOTE | 2024-04-25 13:37 | P.CRDCN ---
History of Present Illness Consult date: 04/25/24 History of present illness: HISTORY OF PRESENTING ILLNESS 58-year-old with past medical history of CAD s/p stenting 10 years ago, type 2 diabetes, presented to the hospital because of worsening chest pressure that resolved spontaneously after few minutes This was not associated with any nausea or diaphoresis. Patient reported that his symptoms are somewhat similar to his past heart attack. Denies any smoking, recreational drug use marijuana use or heavy alcohol use Admission ECG showed normal sinus rhythm with no concerns of ST-T wave changes at rest. Chest x-ray did not show signs of pulmonary congestion. Labs were nonrevealing. Troponin were negative REVIEW OF SYSTEMS 14 point review of system is negative except what is mentioned above in HPI. PHYSICAL EXAMINATION Vital signs reviewed. Head: Normocephalic. Eyes: Sclerae nonicteric. Neck: Brisk carotid upstroke, no jugular venous distention. Lungs: Clear to auscultation. Heart: Regular rate and rhythm, S1-S2, no S3, no murmur or rub. Abdomen: Soft nontender, positive bowel sounds. Extremities: No edema, intact distal pulses. Neuro: Alert, oritented, no focal deficits. Detailed neuro exam was not performed. ASSESSMENT Atypical chest pain, rule out of ACS Prior history of CAD s/p PCI Type 2 diabetes insulin-dependent obesity Family history of CAD PLAN Obtain an echocardiogram Obtain treadmill nuclear stress test Continue aspirin 81 mg, atorvastatin 40 mg, Start losartan 12.5 mg daily for nephro protection and blood pressure control. Patient should consider getting on metformin and SGLT2. Defer this to outpatient endocrinology Jared Simmons MD, FACC, RPVI Thank you for allowing [facility] to participate in this patient's care. Feel free to reach out in case of any followup questions. Past Medical History Past Medical History: Coronary Artery Disease (CAD), Chest Pain / Angina, Diabetes Mellitus, Hyperlipidemia Additional Past Medical History / Comment(s): IDDM type II, neuropathy R great toe. History of Any Multi-Drug Resistant Organisms: None Reported Past Surgical History: Heart Catheterization, Heart Catheterization With Stent, Orthopedic Surgery Additional Past Surgical History / Comment(s): right foot steel plate and 7 screws, colonoscopy, vasectomy Past Anesthesia/Blood Transfusion Reactions: No Reported Reaction Date of Last Stent Placement:: 07/2014 Past Psychological History: Anxiety, Depression Smoking Status: Never smoker Past Alcohol Use History: None Reported Past Drug Use History: None Reported - Past Family History Father Additional Family Medical History / Comment(s): AT AGE 63- THYROID CANCER Mother Family Medical History: Coronary Artery Disease (CAD) Additional Family Medical History / Comment(s): 5 [employer]SEL [employer]PASS Medications and Allergies Home Medications Medication Instructions Recorded Confirmed Type Aspirin 81 mg PO DAILY@1200 11/30/15 04/25/24 History Atorvastatin (Unknown Dose) 1 tab PO DAILY@1200 04/25/24 04/25/24 History Insulin Aspart [NovoLOG Flexpen] 4 - 6 units SQ AC-TID@,,04/25/24 04/25/24 History Insulin Glargine,Hum.rec.anlog 35 - 50 units SQ DAILY@1200 04/25/24 04/25/24 History [Lantus Solostar Pen] Allergies Allergy/AdvReac Type Severity Reaction Status Date / Time Penicillins Allergy Unknown Verified 04/25/24 10:26 Childhood glipizide AdvReac "Uncontrollable Verified 04/25/24 10:26 mood swings" metformin AdvReac Diarrhea Verified 04/25/24 10:26 semaglutide [From Ozempic] AdvReac Nausea/Vomiting/Stomach Verified 04/25/24 10:26 Cramps/Headache Physical Exam Vitals: Vital Signs Temp Pulse Pulse Pulse Resp BP BP 04/25/24 11:10 88 16 120/67 04/25/24 08:00 97.7 F 71 18 124/70 04/25/24 06:29 20 04/25/24 06:14 98.0 F 74 18 128/70 04/25/24 05:48 75 20 128/73 04/25/24 05:42 74 19 129/75 04/25/24 05:35 77 19 123/71 04/25/24 04:02 82 20 119/75 04/25/24 03:28 97.8 F 99 20 131/71 Pulse Ox 04/25/24 11:10 96 04/25/24 08:00 98 04/25/24 06:29 04/25/24 06:14 95 04/25/24 05:48 96 04/25/24 05:42 96 04/25/24 05:35 96 04/25/24 04:02 97 04/25/24 03:28 97 Intake and Output 04/24/24 04/25/24 04/25/24 22:59 06:59 14:59 Intake Total 6.775 Output Total 200 Balance -193.225 Intake: Intake, IV Titration 6.775 Amount Nitroglycerin-D5w Pmx 50 6.775 mg In Dextrose/Water 1 250ml.bag @ 5 MCG/MIN 1.5 mls/hr IV .Q24H ONE Rx#: [id number] Output: Urine 200 Other: Voiding Method Urinal Urinal Weight 95.254 kg Results 04/25/24 03:56 04/25/24 03:56 Cardiac Enzymes 04/25/24 04/25/24 04/25/24 Range/Units 03:56 03:56 05:45 AST 28 (17-59) U/L Troponin I 0.013 <0.012 (0.000-0.034) ng/mL 04/25/24 Range/Units 07:40 AST (17-59) U/L Troponin I <0.012 (0.000-0.034) ng/mL Coagulation 04/25/24 Range/Units 03:56 PT 10.2 (10.0-12.5) sec APTT 18.7 L (22.0-30.0) sec CBC 04/25/24 Range/Units 03:56 WBC 10.4 (3.8-10.6) k/uL RBC 5.51 (4.30-5.90) m/uL Hgb 16.1 (13.0-17.5) gm/dL Hct 52.0 (39.0-53.0) % Plt Count 215 (150-450) k/uL Comprehensive Metabolic Panel 04/25/24 Range/Units 03:56 Sodium 136 L (137-145) mmol/L Potassium 4.9 (3.5-5.1) mmol/L Chloride 104 (98-107) mmol/L Carbon Dioxide 25 (22-30) mmol/L BUN 23 H (9-20) mg/dL Creatinine 0.84 (0.66-1.25) mg/dL Glucose 405 H (74-99) mg/dL Calcium 9.5 (8.4-10.2) mg/dL AST 28 (17-59) U/L ALT 36 (4-49) U/L Alkaline Phosphatase 115 (38-126) U/L Total Protein 7.1 (6.3-8.2) g/dL Albumin 4.3 (3.5-5.0) g/dL Current Medications Generic Name Dose Route Start Last Admin Trade Name Freq PRN Reason Stop Dose Admin Acetaminophen 650 mg 04/25/24 05:20 Acetaminophen Tab 325 Mg Tab PO Q6HR PRN Mild Pain or Fever > 100.5 Aspirin 81 mg 04/25/24 09:00 04/25/24 08:03 Aspirin 81 Mg PO 81 mg DAILY BETTY Administration Atorvastatin Calcium 80 mg 04/26/24 12:00 Atorvastatin 80 Mg Tab PO DAILY@1200 [facility] Dextrose/Water 25 ml 04/25/24 06:23 Dextrose 50% Syringe 50 Ml IVP PER PROTOCOL PRN Hypoglycemia Protocol Dextrose/Water 50 ml 04/25/24 06:23 Dextrose 50% Syringe 50 Ml IVP PER PROTOCOL PRN Hypoglycemia Protocol Insulin Aspart 0 unit 04/25/24 07:30 04/25/24 12:53 Insulin Aspart (Novolog) 100 Unit/Ml Vial SQ Not Given ACHS [facility] Protocol Insulin Aspart 4 unit 04/25/24 12:00 04/25/24 12:38 Insulin Aspart (Novolog) 100 Unit/Ml Vial SQ 4 unit AC-TID@ [facility] Administration Insulin Detemir 40 unit 04/25/24 12:00 04/25/24 12:53 Insulin Detemir (Levemir) 100 Unit/Ml Syr SQ 40 unit DAILY@1200 [facility] Administration Losartan Potassium 12.5 mg 04/25/24 11:15 04/25/24 12:32 Losartan 25 Mg Tab PO 12.5 mg DAILY BETTY Administration Morphine Sulfate 4 mg 04/25/24 05:20 04/25/24 06:37 Morphine Sulfate 4 Mg/Ml Syringe IV 4 mg Q4HR PRN Administration Severe Pain (Scale 7 to 10) Naloxone HCl 0.2 mg 04/25/24 05:20 Naloxone 0.4 Mg/Ml 1 Ml Vial IV Q2M PRN Opioid Reversal Nitroglycerin 0.4 mg 04/25/24 12:27 04/25/24 12:22 Nitroglycerin Sl Tabs 0.4 Mg Tab SUBLINGUAL 0.4 mg Q5M PRN Administration Chest Pain Pantoprazole Sodium 40 mg 04/25/24 07:30 04/25/24 06:36 Pantoprazole 40 Mg Tablet PO 40 mg AC-BRKFST BETTY Administration Intake and Output 04/24/24 04/25/24 04/25/24 22:59 06:59 14:59 Intake Total 6.775 Output Total 200 Balance -193.225 Intake: Intake, IV Titration 6.775 Amount Nitroglycerin-D5w Pmx 50 6.775 mg In Dextrose/Water 1 250ml.bag @ 5 MCG/MIN 1.5 mls/hr IV .Q24H [facility] Rx#: [id number] Output: Urine 200 Other: Voiding Method Urinal Urinal Weight 95.254 kg 04/25/24 03:56 04/25/24 03:56
[2024-04-25] MEDS ORDERED: CALCIUM CARBONATE 500 MG CHEWABLE PO PRN (14:14)
[2024-04-25 16:29] LABS: Glucose,Whole Blood 173 mg/dL (70-110)
[2024-04-25] MEDS: ACETAMINOPHEN TAB 325 MG TAB PO PRN (18:37)
[2024-04-25 20:19] LABS: Glucose,Whole Blood 171 mg/dL (70-110)
[2024-04-25] MEDS ORDERED: ATORVASTATIN 80 MG TAB PO SCH (21:00)
[2024-04-26 05:41] VITALS: RESP 16
[2024-04-26 05:51] LABS: Glucose,Whole Blood 158 mg/dL (70-110)
[2024-04-26 12:05] LABS: Glucose,Whole Blood 209 mg/dL (70-110)
[2024-04-26 12:06] VITALS: BP 111/61; PULSE 85; TEMP 97.8
--- NOTE | 2024-04-26 12:18 | CA ---
Exercise Stress Test Report Name: Jose A Quintanilla Exam Date: 04/26/2024 10:55 Exam Location: [place] Stress Ht (in): 69 Wt (lb): 200 BSA: 2.07 Ordering Phys: Jared Simmons MD Referring Phys: Troy Technologist: Cy Milner Age: 58 Gender: M : 1965 Procedure CPT: Indications: Reflex order-Stress test ICD-10 Codes: Patient History: CHEST PAIN, DIABETES, PRIOR HEART CATH WITH STENT, ANGINA, FAMILY HX OF HEART DISEASE Medications: Meds past 24 hrs: Pretest Chest Pain: STRESS TEST Le Protocol Exercise Duration (min:sec): 06:[address] Depressions (mm): Angina Score: Huffman Score: Resting HR (bpm): 90 Peak HR (bpm): 137 Resting BP (mmHg): 132 / 78 Peak BP (mmHg): 183 / 73 MPHR: 161 Target HR: 137 % MPHR: 85 METS: 7.1 Total Dose: Peak Dose: Atropine: Double Product: 09946 BP Response: Stress Termination: Target HR,TARGET HR REACHED/MAX EXERTION Stress Symptoms: CHEST PAIN Stress Summary: ECG ANALYSIS Resting ECG: Stress ECG: CONCLUSIONS Patient underwent exercise stress Cardiolite with a El protocol treadmill stress test. Patient exercised into Stage 3 for a total of 6 minutes and 15 seconds reaching a total of 7.1 METS. Patient's maximum heart rate was 137 which represented 85% age-predicted maximum heart rate. Patient did have atypical reproducible left-sided chest pain 2 out of 10 to begin with and increased up to 7 out of 10 with exertion. Stress EKG findings: At baseline patient's EKG showed normal sinus rhythm, normal axis, minimal 0.[address] depressions in the inferior leads. At peak exercise, EKG showed no significant change from baseline. Conclusions: 1. Nonspecific stress EKG portion secondary baseline EKG abnormalities. 2. Fair exercise capacity. 3. Atypical reproducible chest pain with exertion, clinical correlation recommended. 4. Nuclear portion to be reported separately. Dr. Ernie Berumen DO (Electronically Signed) Final Date: 26 April 2024 12:17
--- NOTE | 2024-04-26 12:55 | NM ---
EXAMINATION TYPE: NM stress cardiolite complete DATE OF EXAM: 04/26/2024 COMPARISON: 03/24/2019 CLINICAL INDICATION: Male, 58 years old with history of Chest pain, Unstable angina; TECHNIQUE: After the intravenous administration of 10.4 mCi Tc 99m Sestamibi - Rest images obtained 45 minutes post injection. The patient exercised using a EMIR protocol and 1 minute prior to peak exercise was injected with 25.1 mCi Tc 99m Sestamibi - Stress images obtained 20 minutes post injecti on. FINDINGS: Targeted heart rate (137 bpm) was achieved during performance of the study (137 bpm achieved). Total exercise time 6 minutes 15 seconds. Review of stress and rest SPECT images demonstrates no distinct p erfusion abnormality. Gated analysis shows normal wall motion with an estimated left ventricular eje ction fraction of 74 %. TID calculated at 0.68, within normal limits. IMPRESSION: No scintigraphic evidence for reversible ischemia.
--- NOTE | 2024-04-26 13:29 | P.DS ---
Providers Date of admission: 04/25/24 05:20 Expected date of discharge: 04/26/24 Attending physician: Mars Mayorga MD Consults: 04/25/24 05:20 Consult Physician Routine Consulting Provider: Chiqui Rutherford Consult Reason/Comments: UA Do you want consulting provider notified?: Yes Primary care physician: Abdullahi Jacquie Layton Hospital Course: Atypical chest pain Hypertension Diabetes type 2 Hyperlipidemia 58-year-old male with a medical history of diabetes, hypertension, hyperlipidemia presented for evaluation of chest pain. On initial evaluation, patient was afebrile, 131/71, heart rate 99, 97% on room air. CBC was unremarkable. Basic metabolic panel was unremarkable. His sugars were elevated in the 405 range. His A1c was 9.3%. Liver function tests are unremarkable. Troponin is less than 0.012 and trended to less than 0.012. CRP was less than 0.5. Coags are unremarkable. EKG was noted to be normal sinus rhythm with no evidence of ischemia. Chest x-ray was clear bilaterally without evidence of acute cardiopulmonary disease. Patient was admitted to observation and evaluated by cardiology service, who recommended Cardiolite stress test, which was completed on 04/26 and noted to be negative for reversible ischemia. Subsequently, patient was discharged home with cardiology follow-up, new medications for losartan, nitroglycerin as needed. He was also advised to follow-up with his primary care physician. I spent 34 minutes coordinating this discharge Gen: In NAD, non-toxic HEENT: normocephalic, atraumatic, hearing acuity is intant, mucous membranes moist CVS: perfusing all extremities well, no pitting edema, Respiratory: symmetric chest expansion, no accessory muscle use, GI: soft, NTTP, ND, : no suprapubic tenderness, no CVA tenderness MSK/Derm: no rashes, cyanosis Neuro: CN II-XII intact, no motor weakness, Psych: cooperative, euthymic mood, judgment and insight is intact Patient Condition at Discharge: Good Plan - Discharge Summary Discharge Rx Participant: Yes New Discharge Prescriptions: New Losartan [Cozaar] 12.5 mg PO DAILY #15 tab Nitroglycerin Sl Tabs [Nitrostat] 0.4 mg SUBLINGUAL Q5M PRN #15 tab PRN Reason: Chest Pain Acetaminophen Tab [Tylenol] 650 mg PO Q6HR PRN tab PRN Reason: Mild Pain Or Fever > 100.5 Continue Aspirin 81 mg PO DAILY@1200 Insulin Aspart [NovoLOG Flexpen] 4 - 6 units SQ AC-TID@,, Insulin Glargine,Hum.rec.anlog [Lantus Solostar Pen] 35 - 50 units SQ DAILY@1200 Atorvastatin Calcium [Lipitor] 80 mg PO DAILY@1200 Discharge Medication List Aspirin 81 mg PO DAILY@1200 11/30/14 [History] Insulin Aspart [NovoLOG Flexpen] 4 - 6 units SQ AC-TID@,,04/25/24 [History] Insulin Glargine,Hum.rec.anlog [Lantus Solostar Pen] 35 - 50 units SQ DAILY@1200 04/25/24 [History] Acetaminophen Tab [Tylenol] 650 mg PO Q6HR PRN tab 04/26/24 [Rx] Atorvastatin Calcium [Lipitor] 80 mg PO DAILY@1200 04/26/24 [History] Losartan [Cozaar] 12.5 mg PO DAILY #15 tab 04/26/24 [Rx] Nitroglycerin Sl Tabs [Nitrostat] 0.4 mg SUBLINGUAL Q5M PRN #15 tab 04/26/24 [Rx] Follow up Appointment(s)/Referral(s): Jared Simmons MD [Medical Doctor] - 1 Week [place] [facility]gr[place] DO [REFERRING] - 1-2 days Discharge Disposition: HOME SELF-CARE
--- NOTE | 2024-04-26 14:14 | P.PN ---
Subjective HISTORY OF PRESENT ILLNESS: 58-year-old with past medical history of CAD s/p stenting 10 years ago, type 2 diabetes, presented to the hospital because of worsening chest pressure that resolved spontaneously after few minutes This was not associated with any nausea or diaphoresis. Patient reported that his symptoms are somewhat similar to his past heart attack. Denies any smoking, recreational drug use marijuana use or heavy alcohol use Admission ECG showed normal sinus rhythm with no concerns of ST-T wave changes at rest. Chest x-ray did not show signs of pulmonary congestion. Labs were nonrevealing. Troponin were negative 04/26/2024 Patient examined this morning in the stress lab. Patient currently denies any chest pain or pressure. He denies any shortness of breath. Vital signs are stable. PHYSICAL EXAM: VITAL SIGNS: Reviewed. GENERAL: Well-developed in no acute distress. NECK: Supple. No JVD or thyromegaly LUNGS: Respirations even and unlabored. Lungs essentially clear to auscultation bilaterally. HEART: Regular rate and rhythm. S1 and S2 heard. EXTREMITIES: Normal range of motion. No clubbing or cyanosis. Peripheral pulses intact. No lower extremity edema ASSESSMENT: Chest pain, troponin negative x 3 Prior history of CAD s/p PCI Type 2 diabetes insulin-dependent Family history of CAD PLAN: Patient underwent Cardiolite stress test this morning which was negative for ischemia Continue current cardiac medications Patient may be discharged home today from a cardiac standpoint We will sign off. Please reconsult if needed. Nurse practitioner note has been reviewed by physician. Signing provider agrees with the documented findings, assessment, and plan of care documented by MMA FIGHTER as a scribe. Objective - Vital Signs Vital signs: Vital Signs Temp 97.8 F 04/26/24 12:00 Pulse 85 04/26/24 12:00 Resp 16 04/26/24 12:00 BP 111/61 04/26/24 12:00 Pulse Ox 96 04/26/24 12:00 FiO2 Intake & Output 04/25/24 04/26/24 04/26/24 18:59 06:59 18:59 Intake Total 359.435 118 Output Total 200 Balance 159.435 118 Weight 91.3 kg Intake: Intake, IV Titration 119.435 Amount Heparin Sod,Pork in 0.45% 111.91 NaCl 25,000 unit In 0.45 % NaCl 1 250ml.bag @ 10. 49 UNITS/KG/HR 9.992 mls/ hr IV .Q24H [facility] Rx#: [id number] Nitroglycerin-D5w Pmx 50 7.525 mg In Dextrose/Water 1 250ml.bag @ 5 MCG/MIN 1.5 mls/hr IV .Q24H ONE Rx#: [id number] Oral 240 118 Output: Urine 200 Other: Voiding Method Urinal Urinal # Voids 1 1 - Labs CBC & Chem 7: 04/25/24 03:56 04/25/24 03:56 Labs: Abnormal Lab Results - Last 24 Hours (Table) 04/25/24 04/25/24 04/25/24 Range/Units 03:56 16:27 20:15 POC Glucose (mg/dL) 173 H 171 H (70-110) mg/dL Hemoglobin A1c 9.3 H (<=6.0) % 04/26/24 04/26/24 Range/Units 05:48 12:03 POC Glucose (mg/dL) 158 H 209 H (70-110) mg/dL Hemoglobin A1c (<=6.0) %
[2024-04-26] MEDS: ATORVASTATIN 80 MG TAB PO SCH (14:44)
[2024-04-26 15:43] VITALS: BMI 29.7
== END 2024-04-26 15:59 | disposition home or self-care (01) ==
LOC: SUPCPDRO 03:27 → EC 03:27 → 3SCARD 05:20 → INTOOBSV 05:20 → 3SCARD 04-26 00:32 → UNDODISIN 04-26 15:59
PROVIDERS: ADMIT Internal Medicine; ATTEND Internal Medicine
DX: R07.89 Other chest pain (principal); I25.10 Atherosclerotic heart disease of native coronary artery without angina pectoris; E11.9 Type 2 diabetes mellitus without complications; I10 Essential (primary) hypertension; E66.9 Obesity, unspecified; E78.5 Hyperlipidemia, unspecified; F32.A Depression, unspecified; F41.9 Anxiety disorder, unspecified; Z68.29 Body mass index [BMI] 29.0-29.9, adult; Z79.4 Long term (current) use of insulin; Z79.82 Long term (current) use of aspirin; Z79.899 Other long term (current) drug therapy; I25.2 Old myocardial infarction; Z95.5 Presence of coronary angioplasty implant and graft; Z88.0 Allergy status to penicillin; Z88.8 Allergy status to other drugs, medicaments and biological substances
CPT/HCPCS: 96366 ×3; 96367 ×2; 96365; 96375; 99291; 36415; 93005; 93017; 80053; 85652; 83735; 84484; 85025; 85610; 85730; 86140; 83036; 71046; 78452; G0378 ×2; A9500; J2270; J1644 ×2; J2305